=== PATIENT | female | born 1960 | race Caucasian/White ===

== ENCOUNTER 2022-10-07 15:20 | Emergency (ER) | payer OTHER ==
[2022-10-07] MEDS: Sodium Chloride 0.9% 1,000 ML IV ONE (15:42)
[2022-10-07] MEDS: Sodium Chloride 0.9% 10 ML Syringe FLUSH PRN (15:43)
[2022-10-07] MEDS: methylPREDNISolone Sodium Succinate 125 MG/2 ML SDV IVPUSH ONE (15:43)
[2022-10-07] MEDS: Famotidine 20 MG/2 ML SDV IVPUSH ONE (15:43)
[2022-10-07 16:11] LABS: PTT,PARTIAL THROMBOPLSTIN TIME 20.8 SEC (22.0-34.0)
[2022-10-07 16:23] LABS: ANION GAP 16.1 mEq/L (7-13); CHLORIDE,CL 103 mmol/L (98-107); SODIUM,NA 142 mmol/L (136-145)
[2022-10-07 16:24] LABS: ESTIMATED GFR 52 mL/min (>=60)
[2022-10-07] MEDS: Potassium Chloride 10 MEQ Tab.ER PO ONE (16:50)
[2022-10-07 17:39] LABS: AMPHETAMINES,URINE NEGATIVE (NEGATIVE); BARBITURATES,URINE NEGATIVE (NEGATIVE); BENZODIAZEPINE,URINE NEGATIVE (NEGATIVE); MDMA (ECSTASY), URINE NEGATIVE (NEGATIVE); METHADONE,URINE NEGATIVE (NEGATIVE); METHAMPHETAMINES,URINE NEGATIVE (NEGATIVE); OPIATES,URINE NEGATIVE (NEGATIVE); OXYCODONE,URINE NEGATIVE (NEGATIVE); PHENCYCLIDINE,URINE NEGATIVE (NEGATIVE); TCA,URINE NEGATIVE (NEGATIVE)
== END 2022-10-07 17:44 | disposition home or self-care (01) ==
LOC: DL.ED 15:20
DX: T78.40XA Allergy, unspecified, initial encounter (principal); R55 Syncope and collapse; E03.9 Hypothyroidism, unspecified; E87.6 Hypokalemia; E83.42 Hypomagnesemia; B02.9 Zoster without complications; Z79.899 Other long term (current) drug therapy
CPT/HCPCS: 36415; 71045; 80053; 80305-QW; 81001; 82947; 83605; 83735; 84145; 84443; 84484; 85025; 85610; 85651; 85730; 86140; 93005; 93010; 96361; 96374; 96375; 99284; 99284-25; A9270-GY; J2930; J3490; J7030